=== PATIENT | female | born 1985 | race Caucasian/White ===

== ENCOUNTER 2018-03-16 16:14 | Emergency (ER) | payer MEDICAID ==
[~2018-03-16] VITALS: Ht 165.1 cm; Wt 71.2 kg
[2018-03-16 16:21] VITALS: BP 133/96; Ht 165.1 cm; Wt 71.2 kg
== END 2018-03-16 17:08 | disposition home or self-care (01) ==
LOC: ED 16:14
DX: M62.830 Muscle spasm of back (principal)

== ENCOUNTER 2019-11-22 04:15 | Emergency (ER) | payer MEDICAID ==
[~2019-11-22] VITALS: Ht 165.1 cm; Wt 73.5 kg
[2019-11-22 08:21] VITALS: BP 105/82
[2019-11-22 08:39] LABS: BASOPHIL % 0.2 % (0-2); PLATELET COUNT 183 x10^3mcL (130-400)
[2019-11-22 08:57] LABS: UA SPECIFIC GRAVITY >=1.030 (1.005-1.035); microscopic required? YES; urine erythrocyte 3+ (NEGATIVE)
== END 2019-11-22 08:21 | disposition home or self-care (01) ==
LOC: ED 04:15
PROVIDERS: Emergency Medicine
DX: O20.0 Threatened abortion (principal); O23.41 Unspecified infection of urinary tract in pregnancy, first trimester; Z3A.13 13 weeks gestation of pregnancy
CPT/HCPCS: Q0092